=== PATIENT | male | born 1985 | race Caucasian/White ===

== ENCOUNTER 2018-08-14 23:37 | Emergency (ER) | payer OTHER ==
[~2018-08-14] VITALS: Ht 177.8 cm; Wt 96.2 kg
[2018-08-15] MEDS ORDERED: KETO10TA2 PO (03:43)
[2018-08-15] MEDS ORDERED: MUPIROCIN22 GM TOP (03:43)
[2018-08-15] MEDS ORDERED: NORFLEX100MG PO (03:43)
== END 2018-08-15 03:47 | disposition home or self-care (01) ==
LOC: ER 23:37
DX: S20.211A Contusion of right front wall of thorax, initial encounter (principal); S50.811A Abrasion of right forearm, initial encounter; S39.012A Strain of muscle, fascia and tendon of lower back, initial encounter; S66.811A Strain of other specified muscles, fascia and tendons at wrist and hand level, right hand, initial encounter; V49.9XXA Car occupant (driver) (passenger) injured in unspecified traffic accident, initial encounter; Y93.89 Activity, other specified; Y92.488 Other paved roadways as the place of occurrence of the external cause; Y99.8 Other external cause status